=== PATIENT | female | born 1950 | race Caucasian/White ===

== ENCOUNTER 2019-11-04 08:27 | Day surgery (SDC) | payer MEDICARE, BC ==
[2019-11-04] MEDS ORDERED: Sodium Chloride 0.9% 10 ML Syringe FLUSH PRN (08:30)
[2019-11-04] MEDS ORDERED: Lactated Ringers 1,000 ML IV SCH (08:30)
[2019-11-04] MEDS ORDERED: Propofol 200 MG/20 ML SDV ONE ×2 (08:37→09:44)
--- NOTE | 2019-11-04 09:40 | PCM.PN ---
- General Info Date of Service: 11/04/19 - Review of Systems Systems Review Comment:: 69-year-old female referred for colonoscopy. She has recently noted some hematochezia and had a positive fit test.She says it has been over 10 years since her last colonoscopy. Her recent history and physical is reviewed and no significant changes are noted. I discussed the proposed colonoscopy with the patient. She agrees to proceed accepting risks. - Patient Data Vitals - Most Recent: Last Vital Signs Temp 98.4 F 11/04/19 08:54 Pulse 57 L 11/04/19 09:36 Resp 20 11/04/19 09:36 BP 178/81 H 11/04/19 09:36 Pulse Ox 97 11/04/19 09:36 Weight - Most Recent: 93.667 kg Med Orders - Current: Current Medications Lactated Ringer's (Ringers, Lactated) 1,000 mls @ 125 mls/hr IV ASDIRECTED LAST Last Admin: 11/04/19 09:12 Dose: 125 mls/hr Sodium Chloride (Saline Flush) 10 ml FLUSH ASDIRECTED PRN PRN Reason: Keep Vein Open Discontinued Medications Propofol (Diprivan 20 Ml) Confirm Administered Dose 400 mg .ROUTE .STK-MED ONE Stop: 11/04/19 08:38 Sepsis Event Note - Focused Exam Vital Signs: Vital Signs Temp Pulse Resp BP Pulse Ox 11/04/19 09:36 57 L 20 178/81 H 97 11/04/19 08:54 98.4 F 60 20 157/103 H 99 Date Exam was Performed: 11/04/19 Time Exam was Performed: 09:38 - Problem List Review Problem List Initiated/Reviewed/Updated: Yes - My Orders Last 24 Hours: My Active Orders 11/04/19 08:30 Patient Status [ADT] Routine Peripheral IV Care [RC] . DIRECTED Verify Patient Consent Obtain [RC] ASDIRECTED Lactated Ringers [Ringers, Lactated] 1,000 ml IV ASDIRECTED Sodium Chloride 0.9% [Saline Flush] 10 ml FLUSH ASDIRECTED PRN Peripheral IV Insertion Adult [OM.PC] Routine - Assessment Assessment:: hematochezia with positive fit test - Plan Plan:: colonoscopy
--- NOTE | 2019-11-04 10:23 | PCM.OPNOTE ---
- General Post-Op/Procedure Note Date of Surgery/Procedure: 11/04/19 Operative Procedure(s): Colonoscopy with polypectomy Findings: Small transverse colon polyp Extensive Sigmoid Diverticulosis without acute inflammation Small external hemorrhoids Pre Op Diagnosis: + FIT Post-Op Diagnosis: Colon Polyp. Sigmoid Diverticulosis. Hemorrhoids Anesthesia Technique: MAC Primary Surgeon: Kuldip Suárez Pathology: Transverse colon polyp EBL in mLs: 0 Complications: None Condition: Good
--- NOTE | 2019-11-04 11:54 | OR ---
Date of Procedure: 11/04/2019 PREOPERATIVE DIAGNOSIS: Positive FIT test. POSTOPERATIVE DIAGNOSIS: Transverse colon polyp, sigmoid diverticulosis, and external hemorrhoids. OPERATIONS PERFORMED: Colonoscopy with polypectomy. INDICATIONS FOR SURGERY: This 69-year-old female is referred for a colonoscopy. She was recently noted to have a positive FIT test and also had some hematochezia. It has been more than 10 years since her last colonoscopy. FINDINGS: In the distal transverse colon, the patient had one small polyp 4 mm in size. She had extensive diverticulosis of the sigmoid colon, but this was without acute inflammation or visible signs of complication. The patient also had small external hemorrhoids without any visible signs of bleeding. DESCRIPTION OF PROCEDURE: The patient was taken to the operating room. She was given intravenous sedation, and with her in the left lateral decubitus position, a digital rectal exam was performed showing no rectal masses. The Olympus colonoscope was inserted into the rectum. Retroflexed examination of the rectal canal was performed. The scope was then carefully advanced under direct visualization through the entire length of the colon until the cecum was reached. Cecal acquisition was confirmed by noting the normal internal cecal anatomy including the appendiceal orifice and ileocecal valve. After examining the cecum, the scope was slowly withdrawn sequentially re-examining the colonic segments. In the distal transverse colon, the above-described polyp was identified. This was removed grossly in its entirety with multiple bites of the cold biopsy forceps. Examination was then continued and completed. After the entire colon and rectum had been fully examined and with no sign of complication, the scope was removed, and the patient was taken from the operating room in satisfactory condition. ESTIMATED BLOOD LOSS: 0. COMPLICATIONS: None. PROGNOSIS: Good. GRACIA Suárez MD /[id number]
== END 2019-11-04 11:55 | disposition home or self-care (01) ==
LOC: LL.SDS 08:27
PROVIDERS: ATTEND Surgery
DX: K63.5 Polyp of colon (principal); K57.30 Diverticulosis of large intestine without perforation or abscess without bleeding; K64.4 Residual hemorrhoidal skin tags; J45.909 Unspecified asthma, uncomplicated; K21.9 Gastro-esophageal reflux disease without esophagitis; I10 Essential (primary) hypertension; E78.5 Hyperlipidemia, unspecified; Z88.8 Allergy status to other drugs, medicaments and biological substances; Z88.2 Allergy status to sulfonamides; Z88.1 Allergy status to other antibiotic agents; Z79.899 Other long term (current) drug therapy; Z79.890 Hormone replacement therapy
CPT/HCPCS: 00811; J2704; J7120

== ENCOUNTER 2025-04-14 09:57 | Day surgery (SDC) | payer MEDICARE ==
[~2025-04-14 09:57] MED LIST: Midazolam 1 MG/ML 2 ML SDV ONE; Propofol 200 MG/20 ML SDV ONE; Sodium Chloride 0.9% 10 ML Syringe FLUSH PRN
[2025-04-14] MEDS: Lactated Ringers 1,000 ML IV SCH (09:58)
[2025-04-14] MEDS ORDERED: Metoprolol Tartrate 5 MG/5 ML SDV IV ONE (10:39)
== END 2025-04-14 12:08 | disposition home or self-care (01) ==
LOC: LL.SDS 09:57
PROVIDERS: ATTEND Surgery
DX: Z12.11 Encounter for screening for malignant neoplasm of colon (principal); D12.3 Benign neoplasm of transverse colon; K57.30 Diverticulosis of large intestine without perforation or abscess without bleeding; I10 Essential (primary) hypertension; E78.2 Mixed hyperlipidemia; E66.9 Obesity, unspecified; Z68.30 Body mass index [BMI] 30.0-30.9, adult; Z86.0100 Personal history of colon polyps, unspecified
CPT/HCPCS: 00811; 88305; J2250; J2704; J3490; J7120